=== PATIENT | male | born 1995 | race African-American/Black ===

== ENCOUNTER 2017-03-30 16:11 | Emergency (ER) | payer OTHER ==
[~2017-03-30] VITALS: Ht 182.9 cm; Wt 68.0 kg
[2017-03-30 17:02] VITALS: BP 120/58
--- NOTE | 2017-03-30 17:06 | PHYS DOC ---
Past Medical History Past Medical History: No Pertinent History Additional Past Medical Histor: prior workup for same complaints Past Surgical History: No Surgical History Alcohol Use: None Drug Use: None Adult General Chief Complaint Chief Complaint: SHORTNESS OF BREATH [facility] Patient is a 22 year old male who presents with acute onset prior to arrival of shortness of breath without chest pain, no cough or fever.lorena-oral numbness while driving to work. Denies any leg pain or swelling. Prior workup at [facility] with EKG chest x-ray labs recently that was unremarkable and is received a referral to a head teacher but has not seen him yet. No family history of sudden at an early age. Reports high levels of anxiety. Currently on my exam patient has no symptoms or complaints ever things resolved. Review of Systems Review of Systems Constitutional: Denies fever or chills [] Eyes: Denies change in visual acuity, redness, or eye pain [] HENT: Denies nasal congestion or sore throat [] Respiratory: Denies cough or shortness of breath [] Cardiovascular: No additional information not addressed in [facility] [] GI: Denies abdominal pain, nausea, vomiting, bloody stools or diarrhea [] : Denies dysuria or hematuria [] Musculoskeletal: Denies back pain or joint pain [] Integument: Denies rash or skin lesions [] Neurologic: Denies headache, focal weakness or sensory changes [] Endocrine: Denies polyuria or polydipsia [] Allergies Allergies Allergies Coded Allergies Type Severity Reaction Last Updated Verified No Known Drug Allergies 03/30/17 No Physical Exam Physical Exam Constitutional: Well developed, well nourished, no acute distress, non-toxic appearance. [] HENT: Normocephalic, atraumatic, bilateral external ears normal, oropharynx moist, no oral exudates, nose normal. [] Eyes: PERRLA, EOMI, conjunctiva normal, no discharge. [] Neck: Normal range of motion, no tenderness, supple, no stridor. [] Cardiovascular:Heart rate regular rhythm, no murmur [] Lungs & Thorax: Bilateral breath sounds clear to auscultation [] Abdomen: Bowel sounds normal, soft, no tenderness, no masses, no pulsatile masses. [] Skin: Warm, dry, no erythema, no rash. [] Back: No tenderness, no CVA tenderness. [] Extremities: No tenderness, no cyanosis, no clubbing, ROM intact, no edema. [] Neurologic: Alert and oriented X 3, normal motor function, normal sensory function, no focal deficits noted. [] Psychologic: Affect normal, judgement normal, mood normal. [] Current Patient Data Vital Signs Vital Signs Date Time Temp Pulse Resp B/P (MAP) Pulse Ox O2 Delivery O2 Flow Rate FiO2 03/30/17 16:15 98.3 98 19 127/71 (89) 96 Room Air 98.3 EKG EKG [] Radiology/Procedures Radiology/Procedures [] Course & Med Decision Making Course & Med Decision Making Pertinent Labs and Imaging studies reviewed. (See chart for details) On my exam patient had no symptoms or complaints and is currently declining EKG chest x-ray and/or labs. Does mention that he needs a work note. [] Dragon Disclaimer Dragon Disclaimer This electronic medical record was generated, in whole or in part, using a voice recognition dictation system. Departure Departure Impression: Primary Impression: Acute dyspnea Additional Impression: Anxiety Disposition: 01 HOME, SELF-CARE Condition: IMPROVED Patient Instructions: Anxiety and Panic Attacks, [id number], Shortness of Breath, [id number] Problem Qualifiers SAMIRA STEEN MD Mar 30, 2017 17:06
== END 2017-03-30 17:08 | disposition home or self-care (01) ==
LOC: ER 16:11
DX: R06.00 Dyspnea, unspecified (principal); F41.9 Anxiety disorder, unspecified
CPT/HCPCS: 99281